=== PATIENT | male | born 2000 ===

== ENCOUNTER 2023-04-10 14:45 | Inpatient (IN) | payer MEDICARE, OTHER ==
[2023-04-10] MEDS ORDERED: ACETAMINOPHEN TAB 325 MG TAB PO PRN (14:51)
[2023-04-10] MEDS ORDERED: MAGNESIUM HYDROXIDE 2,400 MG/30 ML CUP PO PRN (14:51)
[2023-04-10] MEDS ORDERED: MAG HYDROX/AL HYDROX/SIMETH 30 ML CUP PO PRN (14:51)
[2023-04-10] MEDS ORDERED: OLANZapine 5 MG TAB PO PRN (16:19)
[2023-04-10] MEDS ORDERED: OLANZapine 10 MG VIAL IM PRN (16:19)
[2023-04-10] MEDS ORDERED: hydrOXYzine HCL 50 MG/ML 1 ML VIAL IM PRN (16:19)
[2023-04-10] MEDS ORDERED: hydrOXYzine HCL 25 MG TAB PO PRN (16:19)
[2023-04-10] MEDS ORDERED: SERTRALINE 100 MG TAB PO SCH (21:00)
[2023-04-10] MEDS: ARIPiprazole 5 MG TAB PO SCH (21:02)
[2023-04-10] MEDS: PRAZOSIN 1 MG CAP PO SCH (21:02)
[2023-04-10] MEDS: lamoTRIgine 100 MG TAB PO SCH (21:02)
[2023-04-10] MEDS: hydrOXYzine HCL 25 MG TAB PO SCH (21:02)
[2023-04-10] MEDS: traZODone HCL 50 MG TAB PO SCH (21:02)
--- NOTE | 2023-04-11 04:08 | P.CONS ---
History of Present Illness - Reason for Consult Consult date: 04/11/23 Past Medical History Past Medical History: No Reported History History of Any Multi-Drug Resistant Organisms: None Reported Past Surgical History: No Surgical Hx Reported Past Anesthesia/Blood Transfusion Reactions: No Reported Reaction Past Psychological History: No Psychological Hx Reported Smoking Status: Current every day smoker Past Alcohol Use History: Abuse Additional Past Alcohol Use History / Comment(s): Hx of alcohol abuse but does not drink due to pancreatitis Past Drug Use History: Marijuana Additional Drug Use History / Comment(s): Pt smokes marajuana every day, states he has been using drugs to cope. Medications and Allergies Allergies Allergy/AdvReac Type Severity Reaction Status Date / Time No Known Allergies Allergy Verified 04/10/23 14:51 Physical Exam Vitals: Vital Signs Temp Pulse Resp BP Pulse Ox 04/11/23 01:48 97.6 F 93 18 113/67 98 04/10/23 18:55 98.0 F 85 20 130/76 96 Intake and Output 04/10/23 04/10/23 04/11/23 14:59 22:59 06:59 Other: Weight 103 kg 102.257 kg
[2023-04-11] MEDS ORDERED: NICOTINE 14MG/24HR PATCH TRANSDERM SCH (09:00)
[2023-04-11] MEDS: NICOTINE GUM (POLACRILEX) 2 MG GUM BUCCAL PRN ×4 (11:20→18:12)
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
[2023-04-11 12:54] LABS: Basophils # (A) 0.1 k/uL (0-0.2); Basophils % (A) 1 %; Eosinophils # (A) 0.1 k/uL (0-0.7); Eosinophils % (A) 1 %; HCT 42.1 % (39.0-53.0); HGB 14.1 gm/dL (13.0-17.5); Lymphocytes # (A) 2.5 k/uL (1.0-4.8); Lymphocytes % (A) 35 %; MCH 27.7 pg (25.0-35.0); MCHC 33.6 g/dL (31.0-37.0); MCV 82.3 fL (80.0-100.0); Mean Platelet Volume 8.4; Monocytes # (A) 0.4 k/uL (0-1.0); Monocytes % (A) 6 %; Neutrophils # (A) 4.1 k/uL (1.3-7.7); Neutrophils % (A) 57 %; Platelet Count 289 k/uL (150-450); RBC 5.11 m/uL (4.30-5.90); RDW 12.8 % (11.5-15.5); WBC 7.2 k/uL (3.8-10.6)
[2023-04-11 13:03] LABS: ALT 34 U/L (4-49); AST 26 U/L (17-59); African American GFR (CKD) >90 (>60 ml/min/1.73 sqM); Albumin 4.4 g/dL (3.5-5.0); Alkaline Phosphatase 62 U/L (38-126); Anion Gap 10 mmol/L; Blood Urea Nitrogen 13 mg/dL (9-20); Calcium 9.6 mg/dL (8.4-10.2); Carbon Dioxide 24 mmol/L (22-30); Chloride 103 mmol/L (98-107); Glucose 81 mg/dL (74-99); Non-African American GFR(CKD) >90 (>60 ml/min/1.73 sqM); Potassium 3.9 mmol/L (3.5-5.1); Sodium 137 mmol/L (137-145); Total Bilirubin 0.7 mg/dL (0.2-1.3)
[2023-04-11] MEDS: hydrOXYzine HCL 25 MG TAB PO SCH (20:14)
[2023-04-11] MEDS: PRAZOSIN 1 MG CAP PO SCH (20:14)
[2023-04-11] MEDS: lamoTRIgine 100 MG TAB PO SCH (20:14)
[2023-04-11] MEDS: ARIPiprazole 5 MG TAB PO SCH (20:14)
[2023-04-11] MEDS: traZODone HCL 50 MG TAB PO SCH (20:15)
[2023-04-11] MEDS ORDERED: MIRTAZAPINE 15 MG TAB PO SCH (21:00)
[2023-04-12 06:55] VITALS: BP 105/55; PULSE 66; RESP 17; TEMP 97.8
[2023-04-12] MEDS: NICOTINE GUM (POLACRILEX) 2 MG GUM BUCCAL PRN (06:55)
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
== END 2023-04-12 11:17 | disposition home or self-care (01) | DRG 881 ==
LOC: 3MHU 18:12
PROVIDERS: ADMIT Psychiatry & Neurology Psychiatry; ATTEND Psychiatry & Neurology Psychiatry
DX: F43.21 Adjustment disorder with depressed mood (principal); F10.10 Alcohol abuse, uncomplicated; F31.9 Bipolar disorder, unspecified; F11.10 Opioid abuse, uncomplicated; T40 Poisoning by, adverse effect of and underdosing of narcotics and psychodysleptics [hallucinogens]; F43.10 Post-traumatic stress disorder, unspecified; G47.00 Insomnia, unspecified; F91.3 Oppositional defiant disorder; F94.1 Reactive attachment disorder of childhood; F17.210 Nicotine dependence, cigarettes, uncomplicated; Z71.6 Tobacco abuse counseling; Z91.51 Personal history of suicidal behavior; Z81.8 Family history of other mental and behavioral disorders; Z63.72 Alcoholism and drug addiction in family; Z81.1 Family history of alcohol abuse and dependence
CPT/HCPCS: 80053; 80175; 83036; 84443; 85025